=== PATIENT | female | born 1955 | race Caucasian/White ===

== ENCOUNTER → 2017-04-19 | Outpatient (CLI) | payer OTHER ==
[~2017-04-19] MED LIST: GLYBURIDE5 MG PO; LIPITOR10 MG PO; LISINOPRIL10 MG PO; METFORMIN HCL500 MG PO; PROAIR HFA INH8.5 GM INH; WELLBUTRIN SR150 MG
--- NOTE | 2017-04-19 18:42 | Diagnostic Imaging Report ---
PROCEDURE: Frontal and lateral views of the chest. COMPARISON: None. INDICATIONS: COUGH FINDINGS: Lines/tubes: None. Lungs: The lungs are well inflated and clear. There is no evidence of pneumonia or pulmonary edema. Pleura: There is no pleural effusion or pneumothorax. Heart and mediastinum: The heart and the mediastinum are normal. Bones: No acute bony abnormality. IMPRESSION: 1. No acute cardiopulmonary disease. Dictated by: Trenton Orr M.D. on 04/19/2017 at 18:51 Electronically approved by: Trenton Orr M.D. on 04/19/2017 at 18:51
== END ==
LOC: RAD 18:06
PROVIDERS: ATTEND Internal Medicine
DX: J40 Bronchitis, not specified as acute or chronic (principal)
CPT/HCPCS: 71046

== ENCOUNTER 2017-05-24 12:23 | Emergency (ER) | payer OTHER ==
[~2017-05-24] VITALS: Ht 162.6 cm; Wt 73.9 kg
--- OUTSIDE RECORDS SUMMARY | 2017-05-24 12:26 | XMS REPORT ---
Author Author [facility] Address Unknown Phone Unavailable Care Team Providers Care Mesh Man Name Role Phone CARLI MCFARLANE Unavailable Unavailable Problems This patient has no known problems. Allergies, Adverse Reactions, Alerts This patient has no known allergies or adverse reactions. Medications This patient has no known medications. Results Test Description Test Time Test Comments Text Results Atomic Results Result Comments CHEST 2 VIEWS [place] [address] Patient Name: NANCY LEAVITT MR # : [id number] : 1955 Age/Sex: 61/F Req #: [id number] Adm Physician: Ordered by: CARLI MCFARLANE MD Report #: [id number] Location: RAD Room/Bed: Procedure: [id number] DX/CHEST 2 VIEWS Exam Date: 04/19/17 Exam Time: 1807 REPORT STATUS: Signed PROCEDURE: Frontal and lateral views of the chest. COMPARISON: None. INDICATIONS: COUGH FINDINGS : Lines/tubes: None. Lungs: The lungs are well inflated and clear. There is no evidence of pneumonia or pulmonary edema. Pleura: There is no pleural effusion or pneumothorax. Heart and mediastinum: The heart and the mediastinum are normal. Bones: No acute bony abnormality. IMPRESSION: 1. No acute cardiopulmonary disease. Dictated by: Trenton Orr M.D. on 04/19/2017 at 18:51 Electronically approved by: Trenton Orr M.D. on 04/19/2017 at 18:51 Dictated By: TRENTON ORR MD 50 Transcribed By: LEI on 04/19/171850 COPY TO: CARLI MCFARLANE MD
[2017-05-24] MEDS ORDERED: SODIUM CHLORIDE 0.9% 1000ML 1,000 ML IV SCH (13:15)
[2017-05-24] MEDS ORDERED: ALBUTEROL/IPRATROPIUM 3 ML NEB NEB ONE ×2 (13:15→14:15)
[2017-05-24] MEDS ORDERED: PROAIR HFA INH8.5 GM INH (13:46)
[2017-05-24] MEDS ORDERED: METFORMIN HCL500 MG PO (13:47)
[2017-05-24] MEDS ORDERED: LISINOPRIL10 MG PO (13:48)
[2017-05-24] MEDS ORDERED: GLYBURIDE5 MG PO (13:50)
[2017-05-24] MEDS ORDERED: WELLBUTRIN SR150 MG (13:50)
[2017-05-24] MEDS ORDERED: LIPITOR10 MG PO (13:51)
[2017-05-24] MEDS ORDERED: CEFTRIAXONE SOD 1 GM VIAL IV SCH (14:15)
[2017-05-24] MEDS ORDERED: DEXAMETHASONE SOD PHOS 10 MG/1 ML VIAL IV ONE (14:15)
[2017-05-24 16:55] VITALS: BP 142/74
[2017-05-25] MEDS ORDERED: AZITHROMYCIN 250 MG TAB PO SCH (09:00)
== END 2017-05-24 16:47 | disposition home or self-care (01) ==
LOC: FSED 12:23
DX: R06.00 Dyspnea, unspecified (principal); R05 Cough; J20.9 Acute bronchitis, unspecified; I10 Essential (primary) hypertension
CPT/HCPCS: 71046; 80053; 81003; 83880; 85025; 87400; 93005; 99283; J1100

== ENCOUNTER 2017-06-27 20:26 | Emergency (ER) | payer OTHER ==
[~2017-06-27] VITALS: Ht 162.6 cm; Wt 73.9 kg
--- OUTSIDE RECORDS SUMMARY | 2017-06-27 20:29 | XMS REPORT | Continuity of Care Document ---
Author Author [facility] Organization [facility] Address [address] [place] [address] Phone Unavailable Care Team Providers Care Lodging Manager Name Role Phone CARLI MCFARLANE MD PCP Insurance Providers Guarantor Nancy Leavitt Address [address] [place] [address] Email [email or web address] [facility] Policy Number [id number] Subscriber's Name LudinNancy Relationship 18 Self / Same As Patient Advance Directives Directive Response Recorded Date/Time Does the patient have an advance directive? No 04/19/17 6:04pm If yes, is advance directive on file with [facility]? No 04/19/17 6:04pm If not on file with [facility] will patient provide a copy? No 04/19/17 6:04pm Do you have a Directive to Physician? No 05/24/17 1:03pm Do you have a Medical Power of Skip Operator? No 05/24/17 1:03pm Do you have an out of hospital Do Not Resuscitate Order? No 05/24/17 1:03pm Do you have any special needs we should be aware of? No 05/24/17 1:03pm Do you have a support person here with you today? No 05/24/17 1:03pm Did patient receive Notice of Privacy Practices? Yes 05/24/17 1:03pm Did patient receive patient rights and responsibilities? Yes 05/24/17 1:03pm Problems No problem information available. Medications Current Home Medications Medication Dose Units Route Directions Days Qty Instructions Start Date Albuterol Sulfate (Proair Hfa Inhaler*) 8.5 Gm Inh 2 Inh Inhalation Atorvastatin Calcium (Lipitor*) 10 Mg Tablet 20 Mg Oral Daily Bupropion Hcl (Wellbutrin Sr) 150 Mg Tablet.er Glyburide 5 Mg Tablet 5 Mg Oral Daily 30 Tab Lisinopril 10 Mg Tablet 5 Mg Oral Daily 30 Tab Metformin Hcl 500 Mg Tablet 1,000 Mg Oral Twice A Day 60 Tab Social History Smoking Status Start Date Stop Date Former smoker Hospital Discharge Instructions No hospital discharge instruction information available. Plan of Care Discharge Date 05/24/17 4:47pm Disposition HOME, SELF-CARE Condition at Discharge Improved Instructions/Education Provided Bronchitis (Acute) - Adult Bronchospasm Prescriptions See Medication Section Additional Instructions/Education Take ALL medications, as prescribed. In addition to the prescriptions prescribed, recommend: - Zyrtec (Cetirizine) 10 mg - 1 tab daily, to help dry up secretions. - Mucinex 600 mg - 2 tabs twice daily, with a full glass of water. Alubterol Nebulizer treatments - every 4 hours while awake, for cough and chest tightness. Space the treatments, as tolerated, as breathing improves. Check your blood sugars 2-3/x daily, while on oral steroids. Keep a log of these readings. These, along with the injection of Decadron that you received here today, can cause your blood sugars to be elevated. Recommend that you: - Resume Januvia 100 mg - 1 tab daily, along with all of your usual diabetes medications. - Drink plenty of water, 2L/day, if possible. - Avoid or limit all concentrated carbohydrates (sugars, sweets, juices, etc) and starches including potatoes, rice, bread, etc., to try and keep the blood sugars in a normal range. - If your blood sugars run 300 or greater for 3 consecutive readings,norify your physician, as you may need to be on insulin temporarily, while completing the course of steroids for your lungs. If your breathing substantially improves, and your blood sugars are 300, or greater, then STOP the Prednisone. Follow-up with your PCP in 1 week, or sooner, if symptoms are not improving. Functional Status No functional status information available. Allergies, Adverse Reactions, Alerts Allergen Type Severity Reaction Status Last Updated Amoxicillin Allergy Severe LIP AND FACIAL EDEMA Active 05/24/17 Levofloxacin Allergy Severe VOMITING Active 05/24/17 Immunizations No immunization information available. Vital Signs Acute Vital Signs Vital Response Date/Time Pulse Pulse Rate (adult) 88 bpm (60 - 90) 05/24/2017 4:55pm Respiratory Rate 16 bpm (12 - 24) 05/24/2017 4:55pm Blood Pressure 142/74 mm Hg 05/24/2017 4:55pm Height 5 ft 4 in 05/24/2017 12:45pm Weight 163 lb 05/24/2017 12:45pm Body Mass Index 28.0 kg/m^2 05/24/2017 12:45pm Results No relevant diagnostic test, laboratory data and/or discharge summary information available. Procedures Procedure Status Date Provider(s) X-ray of chest, two views Active 04/19/17 CARLI MCFARLANE MD Encounters Encounter Location Arrival/Admit Date Discharge/Depart Date Attending Provider Departed Emergency Room [facility] 05/24/17 12:23pm 05/24 4:47pm JUNIOR GARRIDO MD Registered Clinic [facility] 04/19/17 6:06pm CARLI MCFARLANE MD
--- OUTSIDE RECORDS SUMMARY | 2017-06-27 20:29 | XMS REPORT ---
Author Author Admin, [place] Organization [facility] Address Unknown Phone Unavailable Allergies, Adverse Reactions, Alerts Allergy Name Reaction Description Start Date Severity Status Provider No Known Allergies Pastor Barbour MA Conditions or Problems Problem Name Problem Code Onset Date Status Entry Date Provider Comment Standard Description Annotate COPD, acute exacerbation 491.21 Active Loraine Ruby MD Obstructive chronic bronchitis with (acute) exacerbation Smokes cigarettes; >30 pk-yrs 305.1 Active Loraine Ruby MD Tobacco use disorder Acute bronchitis 466.0 Active Loraine Ruby MD Acute bronchitis HEPATITIS C 070.51 Active Noemi HERNANDEZ Acute hepatitis C without mention of hepatic coma TOBACCO USER 305.1 Active Noemi HERNANDEZ Tobacco use disorder DIABETES MELLITUS 250.00 Active Mishel Sullivan NP Diabetes mellitus without mention of complication, type II or unspecified type, not stated as uncontrolled HYPERTENSION 401.1 Active Mishel Sullivan NP Benign essential hypertension WELL WOMAN V72.31 Inactive Mishel Sullivan NP Routine gynecological examination WELL WOMAN ICD-V72.31 Inactive Mishel Sullivan NP Medication List Medication Instructions Start Date Stop Date Generic Name NDC Status Provider Patient Instruction AZITHROMYCIN 250 MG ORAL TABLET 2 tablets by mouth on day one then one tablet by mouth each day for a total of 5 days AZITHROMYCIN 74236621724 Active Loraine Ruby MD Active IPRATROPIUM BROMIDE 0.02 % INHALATION SOLUTION .5 mg neb Every 6-8 h r 06/21 IPRATROPIUM BROMIDE 37816927927 Active Loraine Ruby MD Active ALBUTEROL SULFATE (2.5 MG/3ML) 0.083% INHALATION NEBULIZATION SOLUTION 1 via Hand held neb every 4 - 6 hours as needed ALBUTEROL SULFATE 34291138246 Active Loraine Ruby MD Active LISINOPRIL 10 MG ORAL TABLET take 1 tab By Mouth Qd LISINOPRIL 46829418821 Active Loraine Ruby MD Active BUPROPION HCL 100 MG ORAL TABLET 1 tab By Mouth Every Day BUPROPION HCL 36676017012 Active Noemi CHAVEZP Active CLOTRIMAZOLE ANTI-FUNGAL 1 % EXTERNAL CREAM apply Twice a Day CLOTRIMAZOLE 29261297095 Active Noemi CHAVEZP Active JANUVIA 100 MG ORAL TABLET 1 tab By Mouth Every Day SITAGLIPTIN PHOSPHATE 81689146104 Active Loraine Ruby MD Active SIMVASTATIN 20 MG ORAL TABLET 1 By Mouth take at bedtime SIMVASTATIN 78630947706 Active Noemi CHAVEZP Active TRAMADOL HCL 50 MG ORAL TABLET 1-2 tablets by mouth bid as needed for pain TRAMADOL HCL 57655269196 Active Noemi CHAVEZP Active AMARYL 4 MG ORAL TABLET 1 by mouth two times a day GLIMEPIRIDE 11378130483 Active Noemi CHAVEZP Active LISINOPRIL-HYDROCHLOROTHIAZIDE 10-12.5 MG ORAL TABLET 1 by mouth daily 01/22 LISINOPRIL-HYDROCHLOROTHIAZIDE 25153298725 Active Noemi CHAVEZP Active METFORMIN HCL 1000 MG ORAL TABLET 1 by mouth twice a day METFORMIN HCL 10385728963 Active Noemi CHAVEZP Active Vital Signs Date Name Value Unit Range Description blood pressure, diastolic 92 mm[Hg] BP méndez blood pressure, systolic 169 mm[Hg] BP sys height E&M 64 [in_us] Bdy height pulse rate E&M 108 /min Heart rate respiratory rate E&M 18 /min Resp rate temperature E&M 97.9 [degF] Body temperature weight E&M 163 [lb_av] Weight Measured blood pressure, diastolic, second observation 91 mm[Hg] BP méndez blood pressure, diastolic 91 mm[Hg] BP méndez blood pressure, systolic, second observation 162 mm[Hg] BP sys blood pressure, systolic 162 mm[Hg] BP sys height E&M 64 [in_us] Bdy height pulse rate E&M 88 /min Heart rate pulse rate #2 88 Heart rate respiratory rate E&M 17 /min Resp rate temperature E&M 98.6 [degF] Body temperature weight E&M 167 [lb_av] Weight Measured Diagnostic Results Date Name Value Unit Range Description Lab Report: CBC With Differential/Platelet, Comp. Metabolic Panel (14), ... - Serology hepatitis C antibody, serum >11.0 0.0-0.9 Lab Report: CBC With Differential/Platelet, Comp. Metabolic Panel (14), ... - Hematology lymphocyte count, blood, automated 2.7 X10E3/UL 10*3/mm3 0.7- 4.5 Lab Report: CBC With Differential/Platelet, Comp. Metabolic Panel (14), ... - Chemistry urea nitrogen, blood 10 mg/dL 6-24 creatinine, serum 0.79 mg/dL 0.57-1.00 chloride, serum 99 mmol/L 97-108 Lab Report: CBC With Differential/Platelet, Comp. Metabolic Panel (14), ... - Hematology mean corpuscular volume, RBC 89 fL 79-97 Lab Report: CBC With Differential/Platelet, Comp. Metabolic Panel (14), ... - Chemistry triglyceride, serum, fasting 152 mg/dL 0-149 Lab Report: CBC With Differential/Platelet, Comp. Metabolic Panel (14), ... - Hematology erythrocyte (RBC) count 4.77 X10E6/UL 10*6/mm3 3.77-5.28 Lab Report: CBC With Differential/Platelet, Comp. Metabolic Panel (14), ... - Chemistry Estimated Glomerular Filtration Rate (calc) 83 mL/min/1.73m2 > 59 Lab Report: CBC With Differential/Platelet, Comp. Metabolic Panel (14), ... - Hematology platelet count 282 X10E3/UL 10*3/mm3 140-415 Lab Report: CBC With Differential/Platelet, Comp. Metabolic Panel (14), ... - Serology HIV-1/HIV-2 Ab, serum Non Reactive Non Reactive Lab Report: CBC With Differential/Platelet, Comp. Metabolic Panel (14), ... - Hematology red blood cell distribution width 14.3 % 12.3-15.4 Lab Report: CBC With Differential/Platelet, Comp. Metabolic Panel (14), ... - Chemistry protein, total, serum 7.1 g/dL 6.0-8.5 HDL cholesterol, serum 54 mg/dL >39 albumin/globulin ratio, serum 1.7 1.1-2.5 Lab Report: CBC With Differential/Platelet, Comp. Metabolic Panel (14), ... - Hematology eosinophils as percent of blood leukocytes 4 % 0-7 Lab Report: CBC With Differential/Platelet, Comp. Metabolic Panel (14), ... - Chemistry Absolute Neutrophils 4.3 X10E3/UL 10*3/uL 1.8-7.8 Lab Report: CBC With Differential/Platelet, Comp. Metabolic Panel (14), ... - Hematology basophil count, absolute 0.1 x10E3/uL 0.0-0.2 Lab Report: CBC With Differential/Platelet, Comp. Metabolic Panel (14), ... - Chemistry alanine aminotransferase (SGPT), serum 24 U/L 0-32 LDL cholesterol, serum 111 mg/dL 0-99 Lab Report: CBC With Differential/Platelet, Comp. Metabolic Panel (14), ... - Hematology monocytes as percent of blood leukocytes 5 % 4-13 Lab Report: Pap IG, rfx HPV ASCU - Lab Human Papillomavirus test result HPVNotTested Lab Report: CBC With Differential/Platelet, Comp. Metabolic Panel (14), ... - Chemistry cholesterol, serum 195 mg/dL 100-199 Lab Report: CBC With Differential/Platelet, Comp. Metabolic Panel (14), ... - Hematology mean corpuscular hemoglobin concentration, RBC 33.8 G/DL % 31.5- 35.7 hemoglobin, blood 14.3 g/dL 11.1-15.9 leukocyte count, blood 7.9 X10E3/UL 10*3/mm3 4.0-10.5 hematocrit, blood 42.3 % 34.0-46.6 Lab Report: CBC With Differential/Platelet, Comp. Metabolic Panel (14), ... - Chemistry globulin, serum 2.6 1.5-4.5 thyroid stimulating hormone, serum 1.910 u[iU]/mL 0.450-4.500 albumin, serum 4.5 g/dL 3.5-5.5 Internal Correspondence: Pre-Visit Planning - Other List of providers caring for patient Kira James and Trini Hoskins Lab Report: CBC With Differential/Platelet, Comp. Metabolic Panel (14), ... - Chemistry very low density lipoproteins 30 mg/dL 5-40 calcium, serum 9.2 mg/dL 8.7-10.2 Lab Report: CBC With Differential/Platelet, Comp. Metabolic Panel (14), ... - Hematology basophils as percent of blood leukocytes 1 % 0-3 monocyte count, blood, automated 0.4 X10E3/UL 10*3/uL 0.1-1.0 Internal Correspondence: Pre-Visit Planning - CC care steam and gas turbine assembler #1, name Kira Castillo Lab Report: CBC With Differential/Platelet, Comp. Metabolic Panel (14), ... - Chemistry immature granulocytes, percentage of total cells, blood 0 % 0-2 urea nitrogen/creatinine ratio, serum 13 9-23 Lab Report: CBC With Differential/Platelet, Comp. Metabolic Panel (14), ... - Hematology lymphocytes as percent of blood leukocytes 35 % 14-46 Lab Report: CBC With Differential/Platelet, Comp. Metabolic Panel (14), ... - Chemistry carbon dioxide, venous blood 24 mmol/L 20-32 Lab Report: CBC With Differential/Platelet, Comp. Metabolic Panel (14), ... - Serology rapid plasma reagin antibody, serum Non Reactive Non Reactive Lab Report: CBC With Differential/Platelet, Comp. Metabolic Panel (14), ... - Chemistry sodium, serum 136 mmol/L 660-549 1788/11/03 hemoglobin A1C, blood, as % of total hemoglobin 8.9 % 4.8-5.6 alkaline phosphatase, serum 70 U/L 25-150 Lab Report: CBC With Differential/Platelet, Comp. Metabolic Panel (14), ... - Hematology Eosinophil Absolute Count 0.3 X10E3/UL 10*3/uL 0.0-0.4 mean corpuscular hemoglobin, RBC 30.0 pg 26.6-33.0 Lab Report: CBC With Differential/Platelet, Comp. Metabolic Panel (14), ... - Chemistry bilirubin, serum, total 0.3 mg/dL 0.0-1.2 Lab Report: CBC With Differential/Platelet, Comp. Metabolic Panel (14), ... - Hematology neutrophils as percent of blood leukocytes 55 % 40-74 Lab Report: CBC With Differential/Platelet, Comp. Metabolic Panel (14), ... - Chemistry potassium, serum 4.3 mmol/L 3.5-5.2 blood glucose, random 252 mg/dL 65-99 aspartate aminotransferase (SGOT), serum 19 U/L 0-40 Encounters Date Encounter Provider Code Facility 13:33:38 CDT Est Patient Detailed - 65075 Loraine Ruby MD CPT- 64842 [facility] 21:48:16 CDT Est Patient Exp Problem - 99935 Loraine Ruby MD CPT- 67694 [facility] 19:29:31 [facility] Ofc Vst, Est Level IV Noemi Adams BROOMMAKER CPT-38695 [facility] 14:30:07 CDT New Patient Problem Focus - 07748 Mishel Sullivan NP CPT-23609 [facility]
[2017-06-27] MEDS ORDERED: SODIUM CHLORIDE 0.9% 1000ML 1,000 ML IV SCH (21:15)
[2017-06-27] MEDS ORDERED: METHYLPREDNISOLONE SOD SUCC 125 MG/2ML VIAL IV ONE (21:15)
[2017-06-27] MEDS ORDERED: ALBUTEROL/IPRATROPIUM 3 ML NEB NEB ONE (21:15)
[2017-06-27] MEDS ORDERED: LORAZEPAM 0.5 MG TAB PO ONE (23:30)
== END 2017-06-28 00:05 | disposition home or self-care (01) ==
LOC: FSED 20:26
DX: R06.00 Dyspnea, unspecified (principal); R05 Cough; J44.1 Chronic obstructive pulmonary disease with (acute) exacerbation; E11.9 Type 2 diabetes mellitus without complications; I10 Essential (primary) hypertension; F41.1 Generalized anxiety disorder; E78.5 Hyperlipidemia, unspecified; Z87.891 Personal history of nicotine dependence
CPT/HCPCS: 71250; 80053; 82553; 83880; 85025; 85379; 93005; 99284

== ENCOUNTER → 2019-09-18 | Outpatient (CLI) | payer OTHER ==
--- NOTE | 2019-09-19 09:14 | Diagnostic Imaging Report ---
Exam: Bone mineral density study. History: Osteoporosis screening, postmenopausal status Comparison: None Discussion: Evaluation of the left hip and lumbar spine was performed. The study is technically adequate. The patient's fracture risk is compared to an age-matched control. The patient denies prior surgery/fracture of the spine, hips or forearm. Left hip femoral neck bone mineral density: 0.894 g/cm2, T-score is 0.4, Z-score is 1.9. Left hip total bone mineral density: 0.965 g/cm2, T-score is 0.2, Z-score is 1.4. Lumbar spine total bone mineral density: 1.025 gm/cm2, T-score is -0.2, Z-score is 0.5. Impression: 1. Bone mineralization by WHO Classification of the left hip is normal, the fracture risk is not increased. 2. Bone mineralization by WHO Classification of the lumbar spine is normal, the fracture risk is not increased. Signed by: Dr. Taiwo Lawler MD on 09/19/2019 9:10 AM
== END ==
LOC: DX 11:50
PROVIDERS: ATTEND Internal Medicine
DX: Z12.31 Encounter for screening mammogram for malignant neoplasm of breast (principal); Z13.820 Encounter for screening for osteoporosis
CPT/HCPCS: 77067; 77080

== ENCOUNTER → 2020-01-23 | Day surgery (SDC) | payer MEDICARE, OTHER ==
[2020-01-18 12:51] LABS: BASOPHILS # (AUTO) 0.1 (0.0-0.1); BASOPHILS % 0.6 % (0.0-1.0); EOSINOPHILS # (AUTO) 0.7 (0.0-0.4); EOSINOPHILS % 7.2 % (0.0-6.0); HEMATOCRIT 41.7 % (34.2-44.1); HEMOGLOBIN 13.8 g/dL (12.0-16.0); LYMPHOCYTES # (AUTO) 3.7 (1.0-3.2); LYMPHOCYTES % 39.3 % (18.0-39.1); MEAN CORPUSCULAR HEMOGLOBIN 29.8 pg (28-32); MEAN CORPUSCULAR HGB CONC 33.1 g/dL (31-35); MEAN CORPUSCULAR VOLUME 90.1 fL (81-99); MONOCYTES # (AUTO) 0.4 (0.2-0.8); MONOCYTES % 4.4 % (4.4-11.3); NEUTROPHILS # (AUTO) 4.5 (2.1-6.9); NEUTROPHILS % 48.1 % (38.7-80.0); PLATELET COUNT 336 x10e3/uL (140-360); RED BLOOD COUNT 4.63 x10e6/uL (3.6-5.1); RED CELL DISTRIBUTION WIDTH 13.5 % (11.7-14.4)
[2020-01-18 13:07] LABS: INR 0.87; PARTIAL THROMBOPLASTIN TIME 23.5 seconds (23.8-35.5); PROTHROMBIN TIME 12.3 seconds (11.9-14.5)
[2020-01-18 13:14] LABS: ALANINE AMINOTRANSFERASE 13 IU/L (0-55); ALBUMIN 4.1 g/dL (3.5-5.0); ALBUMIN/GLOBULIN RATIO 1.5 (0.8-2.0); ALKALINE PHOSPHATASE 79 IU/L (40-150); ANION GAP 14.2 mmol/L (8-16); BLOOD UREA NITROGEN 7 mg/dL (7-26); BUN/CREATININE RATIO 8 (6-25); CALCIUM 9.1 mg/dL (8.4-10.2); CARBON DIOXIDE 25 mmol/L (22-29); CHLORIDE 103 mmol/L (98-107); CREATININE, SERUM 0.83 mg/dL (0.57-1.11); EST GLOMERULAR FILTRATION RATE > 60 ML/MIN (60-); GLUCOSE 215 mg/dL (74-118); POTASSIUM 4.2 mmol/L (3.5-5.1); SODIUM 138 mmol/L (136-145)
[~2020-01-23] MED LIST changes: +ACIDOPHILUS CA1 EACH PO; +ASPIRIN81 MG PO; +BASAGLAR K100 UNIT/1 SC; +BUSPIRONE HCL5 MG PO; +CINNAMON500 MG PO; +DEXAMETHASONE SOD PHOS INJ 4 MG/ML VIAL ONE; +FENTANYL CITRATE/PF 100MCG/2 ML INJ ONE; +GABAPENTIN300 MG PO; +INDIGOTINDISULFONATE SODIUM 8 MG/ML AMP IJ ONE; +Ibuprofen PO; +JARDIANCE25 MG PO; +LEVEMIR FL100 UNIT/1 SC; +LIDOCAINE HCL 2% LOCAL INJ 5 ML SDV VIAL INJ ONE; +MIDAZOLAM HCL 2 MG/2 ML VIAL ONE; +NOVOLOG MI100 UNIT/1 SC; +ONDANSETRON HCL INJ 2MG/ML 2ML 2 MG/ML VIAL ONE; +PROPOFOL IV EMULSION 10 MG/ML 20 ML VIAL ONE; +SEVOFLURANE INHAL SOLN 250 ML PEN BTL ONE; +SILVER NITRATE SWABS ONE; +VIT D3 PO
[2020-01-23 12:10] VITALS: BP 134/84
== END | disposition home or self-care (01) ==
LOC: OR 07:45
PROVIDERS: ATTEND Obstetrics & Gynecology
DX: N95.0 Postmenopausal bleeding (principal); N88.2 Stricture and stenosis of cervix uteri; J44.9 Chronic obstructive pulmonary disease, unspecified; I11.0 Hypertensive heart disease with heart failure; E11.9 Type 2 diabetes mellitus without complications; F41.9 Anxiety disorder, unspecified; Z88.1 Allergy status to other antibiotic agents; Z88.0 Allergy status to penicillin; Z01.810 Encounter for preprocedural cardiovascular examination; Z01.812 Encounter for preprocedural laboratory examination; Z01.818 Encounter for other preprocedural examination; Z11.59 Encounter for screening for other viral diseases; Z79.82 Long term (current) use of aspirin; Z79.4 Long term (current) use of insulin; Z87.891 Personal history of nicotine dependence
CPT/HCPCS: 36415 ×2; 57454; 58558; 71046; 80053; 82948; 85025; 85610; 85730; 88300; 88305; 93005; J1100; J2001; J2250; J2405; J2704; J3010; U0002

== ENCOUNTER 2020-02-27 05:30 | Inpatient (IN) | payer MEDICARE ==
[2020-02-23 11:42] LABS: BASOPHILS # (AUTO) 0.1 (0.0-0.1); EOSINOPHILS # (AUTO) 0.4 (0.0-0.4); EOSINOPHILS % 4.8 % (0.0-6.0); HEMATOCRIT 42.1 % (34.2-44.1); HEMOGLOBIN 13.8 g/dL (12.0-16.0); LYMPHOCYTES # (AUTO) 3.6 (1.0-3.2); LYMPHOCYTES % 39.1 % (18.0-39.1); MEAN CORPUSCULAR HEMOGLOBIN 29.4 pg (28-32); MEAN CORPUSCULAR HGB CONC 32.8 g/dL (31-35); MEAN CORPUSCULAR VOLUME 89.6 fL (81-99); MONOCYTES # (AUTO) 0.5 (0.2-0.8); MONOCYTES % 5.6 % (4.4-11.3); NEUTROPHILS # (AUTO) 4.5 (2.1-6.9); NEUTROPHILS % 49.1 % (38.7-80.0); PLATELET COUNT 298 x10e3/uL (140-360); RED CELL DISTRIBUTION WIDTH 13.6 % (11.7-14.4)
[2020-02-23 12:12] LABS: ALANINE AMINOTRANSFERASE 14 IU/L (0-55); ALBUMIN 4.3 g/dL (3.5-5.0); ALBUMIN/GLOBULIN RATIO 1.6 (0.8-2.0); ALKALINE PHOSPHATASE 71 IU/L (40-150); ANION GAP 14.4 mmol/L (8-16); BLOOD UREA NITROGEN 10 mg/dL (7-26); BUN/CREATININE RATIO 13 (6-25); CALCIUM 9.1 mg/dL (8.4-10.2); CARBON DIOXIDE 25 mmol/L (22-29); CHLORIDE 103 mmol/L (98-107); EST GLOMERULAR FILTRATION RATE > 60 ML/MIN (60-); GLUCOSE 149 mg/dL (74-118); POTASSIUM 4.4 mmol/L (3.5-5.1); SODIUM 138 mmol/L (136-145)
[~2020-02-27] VITALS: Ht 162.6 cm; Wt 73.9 kg
[~2020-02-27 05:30] MED LIST changes: -DEXAMETHASONE SOD PHOS INJ 4 MG/ML VIAL ONE; -FENTANYL CITRATE/PF 100MCG/2 ML INJ ONE; -INDIGOTINDISULFONATE SODIUM 8 MG/ML AMP IJ ONE; -Ibuprofen PO; -LIDOCAINE HCL 2% LOCAL INJ 5 ML SDV VIAL INJ ONE; -MIDAZOLAM HCL 2 MG/2 ML VIAL ONE; -ONDANSETRON HCL INJ 2MG/ML 2ML 2 MG/ML VIAL ONE; -PROPOFOL IV EMULSION 10 MG/ML 20 ML VIAL ONE; -SEVOFLURANE INHAL SOLN 250 ML PEN BTL ONE; -SILVER NITRATE SWABS ONE
[2020-02-27] MEDS ORDERED: CLINDAMYCIN PHOS 900MG/ 50ML 50 ML IV ONE (06:36)
[2020-02-27] MEDS ORDERED: LIDOCAINE 1% W/EPINEPHRINE 20 ML VIAL ONE (07:36)
[2020-02-27] MEDS ORDERED: BUPIVACAINE 0.25% 30ML SDV ONE (07:37)
[2020-02-27] MEDS ORDERED: IBUPROFEN 800MG/ 200ML 200 ML IV ONE (08:19)
[2020-02-27] MEDS ORDERED: BUPIVACAINE LIPOSOME/PF 266 MG/20 ML IJ ONE (08:46)
[2020-02-27] MEDS ORDERED: SODIUM CHLORIDE 0.9% 50ML 50 ML ONE (09:17)
[2020-02-27] MEDS ORDERED: DEXTROSE 50% SYRINGE 50 ML IV PRN (10:00)
[2020-02-27] MEDS ORDERED: KETOROLAC TROMETHAMINE 30 MG/ML VIAL IM PRN (10:00)
[2020-02-27] MEDS ORDERED: DIPHENHYDRAMINE HCL 25 MG CAP PO PRN (10:00)
[2020-02-27] MEDS ORDERED: PROMETHAZINE HCL (IM) 25 MG/ML VIAL IM PRN (10:00)
[2020-02-27] MEDS ORDERED: ONDANSETRON HCL INJ 2MG/ML 2ML 2 MG/ML VIAL IV PRN (10:00)
[2020-02-27] MEDS ORDERED: FENTANYL CITRATE/PF 100MCG/2 ML INJ ONE ×2 (10:17→12:40)
[2020-02-27] MEDS ORDERED: METOCLOPRAMIDE HCL 10 MG/2ML VIAL ONE (10:24)
[2020-02-27] MEDS: INSULIN REGULAR, HUMAN 100 UNIT/1 ML 3ML VIAL SQ SCH ×2 (11:30→21:42)
[2020-02-27] MEDS: ACETAMINOPHEN 325 MG TAB PO SCH ×2 (12:00→18:00)
[2020-02-27] MEDS ORDERED: ROCURONIUM BROMIDE 10 MG/ML 5ML VIAL IV ONE (12:23)
[2020-02-27] MEDS ORDERED: LIDOCAINE HCL 2% LOCAL INJ 5 ML SDV VIAL INJ ONE (12:23)
[2020-02-27] MEDS ORDERED: NEOSTIGMINE 1 MG/ML 10ML VIAL ONE (12:23)
[2020-02-27] MEDS ORDERED: DEXAMETHASONE SOD PHOS INJ 4 MG/ML VIAL ONE (12:23)
[2020-02-27] MEDS ORDERED: PROPOFOL IV EMULSION 10 MG/ML 20 ML VIAL ONE (12:23)
[2020-02-27] MEDS ORDERED: SEVOFLURANE INHAL SOLN 250 ML PEN BTL ONE (12:23)
[2020-02-27] MEDS ORDERED: ONDANSETRON HCL INJ 2MG/ML 2ML 2 MG/ML VIAL ONE (12:23)
[2020-02-27] MEDS ORDERED: GLYCOPYRROLATE INJ 0.2 MG/ML VIAL ONE (12:23)
[2020-02-27] MEDS ORDERED: KETOROLAC TROMETHAMINE 30 MG/ML VIAL ONE (12:23)
[2020-02-27] MEDS ORDERED: MIDAZOLAM HCL 2 MG/2 ML VIAL ONE (12:40)
[2020-02-27] MEDS ORDERED: HYDROMORPHONE 2MG/ML 2 MG/ML ML ONE (12:45)
[2020-02-27] MEDS: IBUPROFEN 600 MG TAB PO SCH ×2 (13:00→19:00)
[2020-02-27] MEDS: GABAPENTIN 300 MG CAP PO SCH ×2 (15:00→20:57)
[2020-02-27 15:10] VITALS: BP 162/75
[2020-02-27 15:30] VITALS: BP 162/75
[2020-02-27 15:34] VITALS: BP 162/75
[2020-02-27 15:47] LABS: BASOPHILS % 0.2 % (0.0-1.0); LYMPHOCYTES # (AUTO) 0.9 (1.0-3.2); MEAN CORPUSCULAR HEMOGLOBIN 29.4 pg (28-32); MEAN CORPUSCULAR HGB CONC 32.5 g/dL (31-35); MEAN CORPUSCULAR VOLUME 90.5 fL (81-99); MONOCYTES # (AUTO) 0.7 (0.2-0.8); MONOCYTES % 5.3 % (4.4-11.3); NEUTROPHILS # (AUTO) 11.2 (2.1-6.9); NEUTROPHILS % 87.1 % (38.7-80.0); PLATELET COUNT 285 x10e3/uL (140-360); RED BLOOD COUNT 4.42 x10e6/uL (3.6-5.1); RED CELL DISTRIBUTION WIDTH 13.5 % (11.7-14.4)
[2020-02-27 16:07] LABS: ANION GAP 15.6 mmol/L (8-16); BLOOD UREA NITROGEN 13 mg/dL (7-26); BUN/CREATININE RATIO 16 (6-25); CALCIUM 8.6 mg/dL (8.4-10.2); CARBON DIOXIDE 23 mmol/L (22-29); CHLORIDE 103 mmol/L (98-107); EST GLOMERULAR FILTRATION RATE > 60 ML/MIN (60-); GLUCOSE 178 mg/dL (74-118); POTASSIUM 4.6 mmol/L (3.5-5.1); SODIUM 137 mmol/L (136-145)
[2020-02-27] MEDS: LACTATED RINGER'S 1,000 ML IV SCH ×2 (16:29→18:00)
[2020-02-27] MEDS: HYDROMORPHONE 1MG/1ML INJ IV PRN (18:45)
[2020-02-27 20:00] VITALS: BP 148/69
[2020-02-27] MEDS: ATORVASTATIN 20 MG TAB PO SCH (20:57)
[2020-02-28] VITALS (9 sets, daily range): BP systolic 105–157; BP diastolic 53–93
[2020-02-28] MEDS: LACTATED RINGER'S 1,000 ML IV SCH ×3 (00:07→18:38)
[2020-02-28] MEDS: HYDROMORPHONE 1MG/1ML INJ IV PRN ×4 (00:19→20:49)
[2020-02-28] MEDS: IBUPROFEN 600 MG TAB PO SCH ×4 (01:00→17:26)
[2020-02-28 05:14] LABS: BASOPHILS % 0.2 % (0.0-1.0); EOSINOPHILS % 0.1 % (0.0-6.0); HEMOGLOBIN 11.4 g/dL (12.0-16.0); LYMPHOCYTES # (AUTO) 2.4 (1.0-3.2); LYMPHOCYTES % 25.8 % (18.0-39.1); MEAN CORPUSCULAR HEMOGLOBIN 29.5 pg (28-32); MEAN CORPUSCULAR HGB CONC 32.6 g/dL (31-35); MEAN CORPUSCULAR VOLUME 90.7 fL (81-99); MONOCYTES # (AUTO) 0.9 (0.2-0.8); MONOCYTES % 9.7 % (4.4-11.3); NEUTROPHILS # (AUTO) 5.9 (2.1-6.9); NEUTROPHILS % 63.8 % (38.7-80.0); PLATELET COUNT 255 x10e3/uL (140-360); RED BLOOD COUNT 3.86 x10e6/uL (3.6-5.1); RED CELL DISTRIBUTION WIDTH 13.5 % (11.7-14.4)
[2020-02-28] MEDS: ACETAMINOPHEN 325 MG TAB PO SCH ×4 (05:33→17:57)
[2020-02-28 05:36] LABS: ANION GAP 10.3 mmol/L (8-16); BLOOD UREA NITROGEN 9 mg/dL (7-26); BUN/CREATININE RATIO 13 (6-25); CALCIUM 8.3 mg/dL (8.4-10.2); CARBON DIOXIDE 27 mmol/L (22-29); CHLORIDE 104 mmol/L (98-107); CREATININE, SERUM 0.71 mg/dL (0.57-1.11); EST GLOMERULAR FILTRATION RATE > 60 ML/MIN (60-); GLUCOSE 131 mg/dL (74-118); POTASSIUM 4.3 mmol/L (3.5-5.1); SODIUM 137 mmol/L (136-145)
[2020-02-28] MEDS: INSULIN REGULAR, HUMAN 100 UNIT/1 ML 3ML VIAL SQ SCH ×4 (07:30→20:57)
[2020-02-28] MEDS: GABAPENTIN 300 MG CAP PO SCH ×3 (08:24→20:50)
[2020-02-28] MEDS: LISINOPRIL 10 MG TAB PO SCH (08:25)
[2020-02-28] MEDS: ENOXAPARIN SOD INJ 40 MG/0.4 ML SYR SC SCH (08:27)
[2020-02-28] MEDS: ATORVASTATIN 20 MG TAB PO SCH (20:50)
[2020-02-28] MEDS: DOCUSATE SODIUM 100 MG CAP PO PRN (20:53)
[2020-02-28] MEDS ORDERED: ATORVASTATIN 10 MG TAB PO SCH (21:00)
[2020-02-29] VITALS (9 sets, daily range): BP systolic 112–163; BP diastolic 63–84
[2020-02-29] MEDS: LACTATED RINGER'S 1,000 ML IV SCH (02:09)
[2020-02-29] MEDS: IBUPROFEN 600 MG TAB PO SCH ×5 (05:09→22:33)
[2020-02-29] MEDS: ACETAMINOPHEN 325 MG TAB PO SCH ×5 (05:09→22:34)
[2020-02-29] MEDS ORDERED: Ibuprofen PO (09:41)
[2020-02-29] MEDS ORDERED: GABAPENTIN300 MG PO (09:41)
[2020-02-29] MEDS ORDERED: ACETAMINOPHEN325 M1 PO (09:41)
[2020-02-29] MEDS: ENOXAPARIN SOD INJ 40 MG/0.4 ML SYR SC SCH (09:46)
[2020-02-29] MEDS: LISINOPRIL 10 MG TAB PO SCH (09:46)
[2020-02-29] MEDS: GABAPENTIN 300 MG CAP PO SCH ×3 (09:46→21:08)
[2020-02-29] MEDS: INSULIN REGULAR, HUMAN 100 UNIT/1 ML 3ML VIAL SQ SCH ×4 (09:46→21:08)
[2020-02-29] MEDS: DOCUSATE SODIUM 100 MG CAP PO PRN ×2 (09:47→21:08)
[2020-02-29] MEDS: HYDROMORPHONE 1MG/1ML INJ IV PRN ×3 (09:58→22:32)
[2020-02-29] MEDS: TRIMETHOPRIM/SULFAMETHOXAZOLE 160-800 MG TAB PO SCH ×2 (11:29→21:08)
[2020-02-29] MEDS ORDERED: ONDANSETRON HCL 4 MG ORAL DISINTEGRATING TAB PO PRN (12:30)
[2020-02-29] MEDS: VANCOMYCIN 1GM/NS 250 ML 250 ML IV SCH (18:40)
[2020-02-29] MEDS ORDERED: TRIMETHOPRIM/SULFAMETHOXAZOLE 160-800 MG TAB PO SCH (21:00)
[2020-02-29] MEDS: ATORVASTATIN 20 MG TAB PO SCH (21:08)
[2020-03-01] VITALS (8 sets, daily range): BP systolic 110–163; BP diastolic 60–72
[2020-03-01] MEDS: ACETAMINOPHEN 325 MG TAB PO SCH ×4 (06:14→23:58)
[2020-03-01] MEDS: IBUPROFEN 600 MG TAB PO SCH ×4 (06:14→23:57)
[2020-03-01] MEDS: VANCOMYCIN 1GM/NS 250 ML 250 ML IV SCH ×2 (06:14→18:02)
[2020-03-01] MEDS: GABAPENTIN 300 MG CAP PO SCH ×3 (08:09→21:20)
[2020-03-01] MEDS: TRIMETHOPRIM/SULFAMETHOXAZOLE 160-800 MG TAB PO SCH ×2 (08:09→21:20)
[2020-03-01] MEDS: ENOXAPARIN SOD INJ 40 MG/0.4 ML SYR SC SCH (08:10)
[2020-03-01] MEDS: LISINOPRIL 10 MG TAB PO SCH (08:10)
[2020-03-01] MEDS: HYDROMORPHONE 1MG/1ML INJ IV PRN ×3 (09:01→23:00)
[2020-03-01] MEDS: INSULIN REGULAR, HUMAN 100 UNIT/1 ML 3ML VIAL SQ SCH ×4 (10:19→21:11)
[2020-03-01 17:06] LABS: BASOPHILS # (AUTO) 0.1 (0.0-0.1); BASOPHILS % 0.7 % (0.0-1.0); EOSINOPHILS # (AUTO) 0.4 (0.0-0.4); EOSINOPHILS % 5.3 % (0.0-6.0); HEMATOCRIT 32.4 % (34.2-44.1); HEMOGLOBIN 10.6 g/dL (12.0-16.0); LYMPHOCYTES # (AUTO) 3.3 (1.0-3.2); MEAN CORPUSCULAR HEMOGLOBIN 29.5 pg (28-32); MEAN CORPUSCULAR HGB CONC 32.7 g/dL (31-35); MEAN CORPUSCULAR VOLUME 90.3 fL (81-99); MONOCYTES # (AUTO) 0.6 (0.2-0.8); MONOCYTES % 7.1 % (4.4-11.3); NEUTROPHILS # (AUTO) 3.7 (2.1-6.9); NEUTROPHILS % 45.5 % (38.7-80.0); PLATELET COUNT 265 x10e3/uL (140-360); RED BLOOD COUNT 3.59 x10e6/uL (3.6-5.1); RED CELL DISTRIBUTION WIDTH 13.3 % (11.7-14.4)
[2020-03-01] MEDS: ATORVASTATIN 20 MG TAB PO SCH (21:20)
[2020-03-01] MEDS: DOCUSATE SODIUM 100 MG CAP PO PRN (23:00)
[2020-03-02] VITALS (9 sets, daily range): BP systolic 138–156; BP diastolic 55–78
[2020-03-02] MEDS: ACETAMINOPHEN 325 MG TAB PO SCH ×3 (06:06→19:09)
[2020-03-02] MEDS: IBUPROFEN 600 MG TAB PO SCH ×3 (06:06→19:09)
[2020-03-02] MEDS: VANCOMYCIN 1GM/NS 250 ML 250 ML IV SCH ×2 (06:06→19:09)
[2020-03-02] MEDS: INSULIN REGULAR, HUMAN 100 UNIT/1 ML 3ML VIAL SQ SCH ×4 (07:30→20:23)
[2020-03-02] MEDS: GABAPENTIN 300 MG CAP PO SCH ×3 (08:19→20:27)
[2020-03-02] MEDS: LISINOPRIL 10 MG TAB PO SCH (08:19)
[2020-03-02] MEDS: TRIMETHOPRIM/SULFAMETHOXAZOLE 160-800 MG TAB PO SCH ×2 (08:19→20:27)
[2020-03-02] MEDS: ENOXAPARIN SOD INJ 40 MG/0.4 ML SYR SC SCH ×2 (08:20→08:21)
[2020-03-02] MEDS ORDERED: BISACODYL 10 MG SUPP PR PRN (17:30)
[2020-03-02] MEDS: HYDROMORPHONE 1MG/1ML INJ IV PRN (19:10)
[2020-03-02] MEDS: ATORVASTATIN 20 MG TAB PO SCH (20:27)
[2020-03-03] VITALS (8 sets, daily range): BP systolic 118–153; BP diastolic 58–78
[2020-03-03] MEDS: HYDROMORPHONE 1MG/1ML INJ IV PRN ×3 (00:18→23:45)
[2020-03-03] MEDS: VANCOMYCIN 1GM/NS 250 ML 250 ML IV SCH ×2 (06:15→17:13)
[2020-03-03] MEDS: ACETAMINOPHEN 325 MG TAB PO SCH ×4 (06:21→17:13)
[2020-03-03] MEDS: IBUPROFEN 600 MG TAB PO SCH ×5 (06:21→17:12)
[2020-03-03] MEDS: TRIMETHOPRIM/SULFAMETHOXAZOLE 160-800 MG TAB PO SCH ×2 (08:35→21:27)
[2020-03-03] MEDS: GABAPENTIN 300 MG CAP PO SCH ×3 (08:36→21:27)
[2020-03-03] MEDS: LISINOPRIL 10 MG TAB PO SCH (08:36)
[2020-03-03] MEDS: ENOXAPARIN SOD INJ 40 MG/0.4 ML SYR SC SCH (08:37)
[2020-03-03] MEDS: INSULIN REGULAR, HUMAN 100 UNIT/1 ML 3ML VIAL SQ SCH ×4 (09:39→21:25)
[2020-03-03] MEDS: ATORVASTATIN 20 MG TAB PO SCH (21:27)
[2020-03-04 04:00] VITALS: BP 119/69
[2020-03-04] MEDS: VANCOMYCIN 1GM/NS 250 ML 250 ML IV SCH ×2 (05:53→17:25)
[2020-03-04] MEDS: IBUPROFEN 600 MG TAB PO SCH ×4 (05:53→17:27)
[2020-03-04] MEDS: ACETAMINOPHEN 325 MG TAB PO SCH ×4 (05:54→17:27)
[2020-03-04 08:09] VITALS: BP 160/74
[2020-03-04] MEDS: LISINOPRIL 10 MG TAB PO SCH (08:25)
[2020-03-04] MEDS: ENOXAPARIN SOD INJ 40 MG/0.4 ML SYR SC SCH ×2 (08:25→08:35)
[2020-03-04] MEDS: INSULIN REGULAR, HUMAN 100 UNIT/1 ML 3ML VIAL SQ SCH ×4 (08:26→21:00)
[2020-03-04] MEDS: TRIMETHOPRIM/SULFAMETHOXAZOLE 160-800 MG TAB PO SCH ×2 (08:26→21:56)
[2020-03-04] MEDS: GABAPENTIN 300 MG CAP PO SCH ×3 (08:26→21:56)
[2020-03-04 08:42] VITALS: BP 160/74
[2020-03-04] MEDS: HYDROMORPHONE 1MG/1ML INJ IV PRN ×3 (09:40→20:01)
[2020-03-04] MEDS ORDERED: HYDROCODONE/APAP 5MG-325MG TAB PO PRN ×2 (13:15)
[2020-03-04 14:08] VITALS: BP 149/65
[2020-03-04 16:45] VITALS: BP 151/67
[2020-03-04 20:00] VITALS: BP_SYST 147; BP_SYST 177; BP_DIAS 74; BP_DIAS 87
[2020-03-04] MEDS ORDERED: ENOXAPARIN SOD INJ 40 MG/0.4 ML SYR SC SCH (21:00)
[2020-03-04] MEDS: ATORVASTATIN 20 MG TAB PO SCH (21:56)
[2020-03-05] VITALS: BP 136/64
[2020-03-05] MEDS: IBUPROFEN 600 MG TAB PO SCH ×3 (00:30→12:00)
[2020-03-05] MEDS: HYDROMORPHONE 1MG/1ML INJ IV PRN (00:31)
[2020-03-05] MEDS: ACETAMINOPHEN 325 MG TAB PO SCH ×3 (00:31→12:00)
[2020-03-05 04:00] VITALS: BP 120/54
[2020-03-05] MEDS: VANCOMYCIN 1GM/NS 250 ML 250 ML IV SCH (05:42)
[2020-03-05 07:37] VITALS: BP 120/54
[2020-03-05] MEDS: INSULIN REGULAR, HUMAN 100 UNIT/1 ML 3ML VIAL SQ SCH ×2 (08:02→11:30)
[2020-03-05 08:39] VITALS: BP 142/65
[2020-03-05] MEDS: LISINOPRIL 10 MG TAB PO SCH (10:24)
[2020-03-05] MEDS: GABAPENTIN 300 MG CAP PO SCH (10:24)
[2020-03-05] MEDS: TRIMETHOPRIM/SULFAMETHOXAZOLE 160-800 MG TAB PO SCH (10:24)
[2020-03-05] MEDS ORDERED: HYDROMORPHONE 1MG/1ML INJ IV STA (10:38)
[2020-03-05 11:59] VITALS: BP 165/84
[2020-03-05 16:22] VITALS: BP 138/80
== END 2020-03-05 12:04 | disposition home or self-care (01) | DRG 742 ==
LOC: OR 05:30 → PACU V 09:56 → MED/SURG 14:28
PROVIDERS: ADMIT Obstetrics & Gynecology; ATTEND Obstetrics & Gynecology
PROC: 0WJG4ZZ Inspection of Peritoneal Cavity, Percutaneous Endoscopic Approach (ICD-10-PCS; 2020-02-27)
PROC: 0UT90ZZ Resection of Uterus, Open Approach (ICD-10-PCS; 2020-02-27)
PROC: 0UT70ZZ Resection of Bilateral Fallopian Tubes, Open Approach (ICD-10-PCS; 2020-02-27)
PROC: 0UT20ZZ Resection of Bilateral Ovaries, Open Approach (ICD-10-PCS; 2020-02-27)
PROC: 0UT90ZZ Resection of Uterus, Open Approach (ICD-10-PCS; principal; 2020-02-27 07:30)
DX: N92.4 Excessive bleeding in the premenopausal period (principal); T81.49XA Infection following a procedure, other surgical site, initial encounter; E11.9 Type 2 diabetes mellitus without complications; Z87.891 Personal history of nicotine dependence; Z20.828 Contact with and (suspected) exposure to other viral communicable diseases
CPT/HCPCS: 36415; 80048; 80053; 80202; 82948; 85025; 86850; 86900; 87071; 87075; 87205; 88307; 88309; 96372; J1100; J1170; J1650; J1817; J1885; J2001; J2250; J2405; J2710; J2765; J3010; J3370; J7121; U0002

== ENCOUNTER → 2020-03-26 | Outpatient (CLI) | payer MEDICARE ==
[~2020-03-26] MED LIST changes: +ACETAMINOPHEN325 M1 PO; +IOPAMIDOL 370 MG/ML 200 ML INFUS..BTL INJ ONE; +Ibuprofen PO; +SODIUM CHLORIDE 0.9% 50ML 50 ML ONE
[2020-03-26 12:44] LABS: BLOOD UREA NITROGEN 10 mg/dL (7-26); BUN/CREATININE RATIO 15 (6-25); CREATININE, SERUM 0.66 mg/dL (0.57-1.11); EST GLOMERULAR FILTRATION RATE > 60 ML/MIN (60-)
== END ==
LOC: CT 11:50
PROVIDERS: ATTEND Obstetrics & Gynecology
DX: Z48.89 Encounter for other specified surgical aftercare (principal)
CPT/HCPCS: 36415; 74177; 82565; 84520; Q9967